=== PATIENT | male | born 1940 | race American Indian/Alaskan Native ===

== ENCOUNTER 2017-07-06 18:55 | Inpatient (IN) | payer MEDICARE ==
[2017-07-06] MEDS ORDERED: APRESOLINE IV ONE (20:24)
--- NOTE | 2017-07-06 20:24 | Emergency Department Report ---
ED General Adult HPI - General Chief complaint: Altered Mental Status Stated complaint: AMS Time Seen by Provider: 07/06/17 20:14 Source: patient, EMS (ems notes not available at time of chart dictation), RN notes reviewed Mode of arrival: Stretcher Limitations: Other (patient has no recollection of the event) - History of Present Illness Initial comments: This is a 77-year-old male. He is previously unknown to this provider. May have a history of hypertension/elevated blood pressure. Patient cannot recall the name of a primary care doctor. As per curious description, patient was found wandering around by police department, and was initially alert and oriented only 1. Patient has no recollection of wandering around, and has no complaints at this time. Patient indicates his 's name is Chintan, his son's name is Tavo , and he lives at [address] [place] [address]; [place] [id number]. He specifically denies headache, neck pain, chest pain, abdominal pain, shortness of breath, headache, urinary symptoms. -: unknown Improves with: none Worsens with: none Associated Symptoms: confusion. denies: chest pain, cough, diaphoresis, fever/ chills, headaches, loss of appetite, malaise, nausea/vomiting, rash, seizure, shortness of breath, syncope, weakness - Related Data Allergies Allergy/AdvReac Type Severity Reaction Status Date / Time No Known Allergies Allergy Unverified 07/06/17 20:15 ED Review of Systems ROS: Stated complaint: AMS Other details as noted in HPI Comment: All other systems reviewed and negative ED Past Medical Hx - Past Medical History Hx Hypertension: Yes - Social History Smoking Status: Current Every Day Smoker Substance Use Type: None ED Physical Exam - General Limitations: No Limitations General appearance: alert, in no apparent distress - Head Head exam: Present: atraumatic, normocephalic - Eye Eye exam: Present: normal appearance (visual acuity intact to finger counting, color perception, reading at a close distance), PERRL, EOMI, other (bilateral arcus senilis). Absent: nystagmus - ENT ENT exam: Present: normal exam, normal orophraynx, mucous membranes moist, normal external ear exam - Neck Neck exam: Present: normal inspection, full ROM - Respiratory Respiratory exam: Present: normal lung sounds bilaterally. Absent: respiratory distress - Cardiovascular Cardiovascular Exam: Present: regular rate, normal rhythm, normal heart sounds. Absent: systolic murmur, diastolic murmur, rubs, gallop - GI/Abdominal GI/Abdominal exam: Present: soft, normal bowel sounds. Absent: distended, tenderness, guarding, rebound, rigid, pulsatile mass - Rectal Rectal exam: Present: deferred - Extremities Exam Extremities exam: Present: normal inspection, full ROM, normal capillary refill. Absent: pedal edema, joint swelling, calf tenderness - Back Exam Back exam: Present: normal inspection, full ROM. Absent: tenderness, CVA tenderness (R), paraspinal tenderness, vertebral tenderness - Neurological Exam Neurological exam: Present: alert, oriented X3, CN II-XII intact, normal gait, other (Extraocular movements intact. Tongue midline. No facial droop. Facial sensation intact to light touch in the V1, V2, V3 distribution bilaterally. 5 and 5 strength in 4 extremities.. Sensation is intact to light touch in 4 extremities.). Absent: motor sensory deficit - Psychiatric Psychiatric exam: Present: normal affect, normal mood - Skin Skin exam: Present: warm, dry, intact, normal color. Absent: rash ED Course Vital Signs 07/06/17 07/06/17 07/06/17 19:55 20:16 20:31 Temperature 98.4 F 98.1 F Pulse Rate 76 73 77 Respiratory 18 15 12 Rate Blood Pressure 201/72 190/70 Blood Pressure 194/78 [Left] O2 Sat by Pulse 99 97 99 Oximetry 07/06/17 07/06/17 07/06/17 20:39 21:05 21:30 Temperature Pulse Rate 77 74 Respiratory 14 Rate Blood Pressure 190/77 190/70 180/73 Blood Pressure [Left] O2 Sat by Pulse 98 99 Oximetry - Reevaluation(s) Reevaluation #1: 07/06/17 21:58 Dr. Beltran, the hospital physician, graciously accepted the patient to the medical service. ED Medical Decision Making - Lab Data Result diagrams: 07/06/17 20:33 07/06/17 21:22 Vital Signs 07/06/17 07/06/17 07/06/17 19:55 20:16 20:31 Temperature 98.4 F 98.1 F Pulse Rate 76 73 77 Respiratory 18 15 12 Rate Blood Pressure 201/72 190/70 Blood Pressure 194/78 [Left] O2 Sat by Pulse 99 97 99 Oximetry 07/06/17 07/06/17 07/06/17 20:39 21:05 21:30 Temperature Pulse Rate 77 74 Respiratory 14 Rate Blood Pressure 190/77 190/70 180/73 Blood Pressure [Left] O2 Sat by Pulse 98 99 Oximetry Lab Results 07/06/17 07/06/17 07/06/17 Range/Units 20:33 20:33 20:33 WBC 11.2 H (4.5-11.0) K/mm3 RBC 5.54 H (3.65-5.03) M/mm3 Hgb 15.8 H (11.8-15.2) gm/dl Hct 50.1 H (35.5-45.6) % MCV 90 (84-94) fl MCH 28 (28-32) pg MCHC 31 L (32-34) % RDW 14.1 (13.2-15.2) % Plt Count 159 (140-440) K/mm3 Lymph % (Auto) 8.1 L (13.4-35.0) % [place] % (Auto) 5.3 (0.0-7.3) % Eos % (Auto) 0.1 (0.0-4.3) % Baso % (Auto) 0.3 (0.0-1.8) % Lymph # 0.9 L (1.2-5.4) K/mm3 [place] # 0.6 (0.0-0.8) K/mm3 Eos # 0.0 (0.0-0.4) K/mm3 Baso # 0.0 (0.0-0.1) K/mm3 Seg Neutrophils % 86.2 H (40.0-70.0) % Seg Neutrophils # 9.6 H (1.8-7.7) K/mm3 PT 12.9 (12.2-14.9) Sec. INR 0.93 (0.87-1.13) APTT 28.6 (24.2-36.6) Sec. Lactic Acid 1.30 (0.7-2.0) mmol/L Ammonia (25-60) umol/L TSH (0.270-4.200) mlU/mL Urine Bilirubin (Negative) Urine RBC (Auto) (0.0-6.0) /HPF Salicylates (2.8-20.0) mg/dL Urine Opiates Screen Urine Methadone Screen Acetaminophen (10.0-30.0) ug/mL Ur Barbiturates Screen Ur Phencyclidine Scrn Ur Amphetamines Screen U Benzodiazepines Scrn Urine Cocaine Screen U Marijuana (THC) Screen Drugs of Abuse Note Plasma/Serum Alcohol (0-0.07) % 07/06/17 07/06/17 07/06/17 Range/Units 20:33 20:33 20:33 WBC (4.5-11.0) K/mm3 RBC (3.65-5.03) M/mm3 Hgb (11.8-15.2) gm/dl Hct (35.5-45.6) % MCV (84-94) fl MCH (28-32) pg MCHC (32-34) % RDW (13.2-15.2) % Plt Count (140-440) K/mm3 Lymph % (Auto) (13.4-35.0) % [place] % (Auto) (0.0-7.3) % Eos % (Auto) (0.0-4.3) % Baso % (Auto) (0.0-1.8) % Lymph # (1.2-5.4) K/mm3 [place] # (0.0-0.8) K/mm3 Eos # (0.0-0.4) K/mm3 Baso # (0.0-0.1) K/mm3 Seg Neutrophils % (40.0-70.0) % Seg Neutrophils # (1.8-7.7) K/mm3 PT (12.2-14.9) Sec. INR (0.87-1.13) APTT (24.2-36.6) Sec. Lactic Acid (0.7-2.0) mmol/L Ammonia 48.0 (25-60) umol/L TSH 1.020 (0.270-4.200) mlU/mL Urine Bilirubin (Negative) Urine RBC (Auto) (0.0-6.0) /HPF Salicylates < 0.3 L (2.8-20.0) mg/dL Urine Opiates Screen Urine Methadone Screen Acetaminophen (10.0-30.0) ug/mL Ur Barbiturates Screen Ur Phencyclidine Scrn Ur Amphetamines Screen U Benzodiazepines Scrn Urine Cocaine Screen U Marijuana (THC) Screen Drugs of Abuse Note Plasma/Serum Alcohol (0-0.07) % 07/06/17 07/06/17 07/06/17 Range/Units 20:33 20:33 21:18 WBC (4.5-11.0) K/mm3 RBC (3.65-5.03) M/mm3 Hgb (11.8-15.2) gm/dl Hct (35.5-45.6) % MCV (84-94) fl MCH (28-32) pg MCHC (32-34) % RDW (13.2-15.2) % Plt Count (140-440) K/mm3 Lymph % (Auto) (13.4-35.0) % [place] % (Auto) (0.0-7.3) % Eos % (Auto) (0.0-4.3) % Baso % (Auto) (0.0-1.8) % Lymph # (1.2-5.4) K/mm3 [place] # (0.0-0.8) K/mm3 Eos # (0.0-0.4) K/mm3 Baso # (0.0-0.1) K/mm3 Seg Neutrophils % (40.0-70.0) % Seg Neutrophils # (1.8-7.7) K/mm3 PT (12.2-14.9) Sec. INR (0.87-1.13) APTT (24.2-36.6) Sec. Lactic Acid (0.7-2.0) mmol/L Ammonia (25-60) umol/L TSH (0.270-4.200) mlU/mL Urine Bilirubin Neg (Negative) Urine RBC (Auto) 1.0 (0.0-6.0) /HPF Salicylates (2.8-20.0) mg/dL Urine Opiates Screen Urine Methadone Screen Acetaminophen < 5.0 L (10.0-30.0) ug/mL Ur Barbiturates Screen Ur Phencyclidine Scrn Ur Amphetamines Screen U Benzodiazepines Scrn Urine Cocaine Screen U Marijuana (THC) Screen Drugs of Abuse Note Plasma/Serum Alcohol < 0.01 (0-0.07) % 07/06/17 Range/Units 21:18 WBC (4.5-11.0) K/mm3 RBC (3.65-5.03) M/mm3 Hgb (11.8-15.2) gm/dl Hct (35.5-45.6) % MCV (84-94) fl MCH (28-32) pg MCHC (32-34) % RDW (13.2-15.2) % Plt Count (140-440) K/mm3 Lymph % (Auto) (13.4-35.0) % [place] % (Auto) (0.0-7.3) % Eos % (Auto) (0.0-4.3) % Baso % (Auto) (0.0-1.8) % Lymph # (1.2-5.4) K/mm3 [place] # (0.0-0.8) K/mm3 Eos # (0.0-0.4) K/mm3 Baso # (0.0-0.1) K/mm3 Seg Neutrophils % (40.0-70.0) % Seg Neutrophils # (1.8-7.7) K/mm3 PT (12.2-14.9) Sec. INR (0.87-1.13) APTT (24.2-36.6) Sec. Lactic Acid (0.7-2.0) mmol/L Ammonia (25-60) umol/L TSH (0.270-4.200) mlU/mL Urine Bilirubin (Negative) Urine RBC (Auto) (0.0-6.0) /HPF Salicylates (2.8-20.0) mg/dL Urine Opiates Screen Presumptive negative Urine Methadone Screen Presumptive negative Acetaminophen (10.0-30.0) ug/mL Ur Barbiturates Screen Presumptive negative Ur Phencyclidine Scrn Presumptive negative Ur Amphetamines Screen Presumptive negative U Benzodiazepines Scrn Presumptive negative Urine Cocaine Screen Presumptive negative U Marijuana (THC) Screen Presumptive negative Drugs of Abuse Note Disclamer Plasma/Serum Alcohol (0-0.07) % - EKG Data -: EKG Interpreted by [facility] EKG shows normal: sinus rhythm - EKG Data When compared to previous EKG there are: previous EKG unavailable 07/06/17 21:52 Normal sinus, 74 bpm, high left ventricular voltage, nonspecific ST elevation diffusely, poor R wave progression, not having chest pain, not consistent with a STEMI, numerous T-wave inversions, abnormal EKG. 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 X-ray of the chest: Interpreted by me, no acute disease, hyperinflated lungs. - Medical Decision Making Differential diagnosis, including but not limited to: Transient ischemic attack , transient hypertensive encephalopathy, hypertensive urgency/emergency, pneumonia, urinary tract infection Assessment and plan: 77-year-old male with resolved altered mental status, clinically sober at this time, GCS of 15, with an NIH score of 0. He has no complaints at this time. He is not a TPA candidate given his current lack of symptoms. Noncontrast CT scan of the brain was negative for acute findings, patient endorses no symptoms. He was given hydralazine for his elevated blood pressure and aspirin. His laboratory studies were otherwise unremarkable at this time, not having chest pain, EKG is morphologically abnormal without prior for comparison. He will R admissions for a transient ischemic attack evaluation , patient at high risk by ABCD 2 score. Critical care attestation.: If time is entered above; I have spent that time in minutes in the direct care of this critically ill patient, excluding procedure time. ED Disposition Clinical Impression: TIA (transient ischemic attack), Elevated blood pressure reading Disposition: OP ADMIT IP TO THIS HOSP Is pt being admited?: Yes Does the pt Need Aspirin: Yes Condition: Good Referrals: MARIANN VALDIVIA MD [Primary Care Provider] - 3-5 Days
[2017-07-06 21:05] LABS: Basophils % (Auto) 0.3 % (0.0-1.8); Eosinophils % (Auto) 0.1 % (0.0-4.3); Hematocrit 50.1 % (35.5-45.6); Hemoglobin 15.8 gm/dl (11.8-15.2); Lymphocytes # (Auto) 0.9 K/mm3 (1.2-5.4); Lymphocytes % (Auto) 8.1 % (13.4-35.0); Mean Corpuscular HGB Conc 31 % (32-34); Mean Corpuscular Hemoglobin 28 pg (28-32); Mean Corpuscular Volume 90 fl (84-94); Monocytes # (Auto) 0.6 K/mm3 (0.0-0.8); Monocytes % (Auto) 5.3 % (0.0-7.3); Platelet Count 159 K/mm3 (140-440); Red Blood Count 5.54 M/mm3 (3.65-5.03); Red Cell Distribution Width 14.1 % (13.2-15.2)
[2017-07-06 21:17] LABS: INR 0.93 (0.87-1.13)
[2017-07-06 21:18] LABS: Partial Thromboplastin Time 28.6 Sec. (24.2-36.6)
[2017-07-06 21:29] LABS: Bilirubin,Urine NEG (Negative); Blood,Urine NEG (Negative); Color,Urine Yellow (Yellow); Mucus,Urine FEW /HPF; Protein,Urine <15 mg/dL mg/dL (Negative); Urobilinogen,Urine < 2.0 mg/dL (<2.0); WBC,Urine < 1.0 /HPF (0.0-6.0)
--- NOTE | 2017-07-06 21:34 | Cat Scan Report ---
FINAL REPORT PROCEDURE: CT HEAD/BRAIN WO CON TECHNIQUE: Computerized tomography of the head was performed without contrast material. HISTORY: Altered Mental Status COMPARISON: No prior studies are available for comparison. FINDINGS: There is no CT evidence of intracranial mass, hemorrhage, acute territorial infarction, or hydrocephalus. The intracranial arteries are symmetric in density. There is a small subcentimeter lacunar infarct in the right basal ganglia. Calvarium is intact. There is mild left maxillary sinus mucosal thickening. IMPRESSION: No CT evidence of acute abnormality
[2017-07-06 21:41] LABS: Amphetamine Screen,Urine PRESUMPTIVE NEGATIVE; Benzodiazepines Screen,Urine PRESUMPTIVE NEGATIVE; Cannabinoid Screen,Urine PRESUMPTIVE NEGATIVE; Cocaine Screen,Urine PRESUMPTIVE NEGATIVE; Methadone Screen,Urine PRESUMPTIVE NEGATIVE; Opiate Screen,Urine PRESUMPTIVE NEGATIVE
[2017-07-06] MEDS ORDERED: BABY ASPIRIN PO ONE (21:55)
[2017-07-06 21:57] LABS: Alanine Aminotransferase 30 units/L (7-56); Albumin 4.1 g/dL (3.9-5); BUN/Creatinine Ratio 15; Blood Urea Nitrogen 16 mg/dL (9-20); Calcium 9.9 mg/dL (8.4-10.2); Hemolysis Index 2
--- NOTE | 2017-07-06 23:15 | History and Physical Report ---
History of Present Illness Date of examination: 07/06/17 History of present illness: This is a 77-year-old male with a history of hypertension, noncompliant with medication was brought to the emergency room by the police. He was satting to straight, oriented 1. The patient stated he was coming from his son's house, use on his way home when she was stopped by the police and brought to the emergency room. He denies any complaints Review Of Systems: Constitutional: no weight loss Ears, eyes, nose, mouth and throat: no nasal congestion, no nasal discharge, no sinus pressure, blurry vision, diplopia Neck: No neck pain or rigidity. Cardiovascular: no chest pain, orthopnea, palpitations Respiratory: No shortness of breath, cough Gastrointestinal: no abdominal pain, hematochezia Genitourinary : no hematuria Musculoskeletal: no muscle ache Integumentary: no rash, no pruritis Neurological: no parathesias, focal weakness Endocrine: no cold or heat intolerance, no polyuria or polydipsia Hematologic/Lymphatic: no easy bruising, no easy bleeding, no gland swelling Allergic/Immunologic: no urticaria, no angioedema. PAST MEDICAL HISTORY; hypertension PAST SURGICAL HISTORY: None SOCIAL HISTORY: Smokes half pack a day, no alcohol or drugs FAMILY HISTORY: Hypertension Medications and Allergies Allergies Allergy/AdvReac Type Severity Reaction Status Date / Time No Known Allergies Allergy Verified 07/06/17 23:20 Home Medications Medication Instructions Recorded Confirmed Last Taken Type No Known Home Medications [No 07/06/17 07/06/17 Unknown History Reported Home Medications] Exam - Physical Exam Narrative exam: The patient appeared well nourished and normally developed. Vital signs as documented. Head exam is unremarkable. No scleral icterus or corneal arcus noted. Neck is without jugular venous distension, thyromegaly, or carotid bruits. Carotid upstrokes are brisk bilaterally. Lungs are clear to auscultation and percussion. Cardiac exam reveals the PMI to be normally sized and situated. Rhythm is regular. First and second heart sounds normal. No murmurs, rubs or gallops. Abdominal exam reveals normal bowel sounds, no masses, no organomegaly and no aortic enlargement. Extremities are nonedematous and both femoral and pedal pulses are normal. - Constitutional Vitals: Temp Pulse Resp BP Pulse Ox 98.1 F 73 15 182/68 99 07/06/17 20:16 07/06/17 22:00 07/06/17 22:00 07/06/17 22:00 07/06/17 22:00 Results - Labs CBC & Chem 7: 07/06/17 20:33 07/06/17 21:22 Labs: Abnormal lab results 07/06/17 07/06/17 07/06/17 Range/Units 20:33 20:33 20:33 WBC 11.2 H (4.5-11.0) K/mm3 RBC 5.54 H (3.65-5.03) M/mm3 Hgb 15.8 H (11.8-15.2) gm/dl Hct 50.1 H (35.5-45.6) % MCHC 31 L (32-34) % Lymph % (Auto) 8.1 L (13.4-35.0) % Lymph # 0.9 L (1.2-5.4) K/mm3 Seg Neutrophils % 86.2 H (40.0-70.0) % Seg Neutrophils # 9.6 H (1.8-7.7) K/mm3 Total Creatine Kinase (55-170) units/L Salicylates < 0.3 L (2.8-20.0) mg/dL Acetaminophen < 5.0 L (10.0-30.0) ug/mL 07/06/17 Range/Units 21:22 WBC (4.5-11.0) K/mm3 RBC (3.65-5.03) M/mm3 Hgb (11.8-15.2) gm/dl Hct (35.5-45.6) % MCHC (32-34) % Lymph % (Auto) (13.4-35.0) % Lymph # (1.2-5.4) K/mm3 Seg Neutrophils % (40.0-70.0) % Seg Neutrophils # (1.8-7.7) K/mm3 Total Creatine Kinase 207 H (55-170) units/L Salicylates (2.8-20.0) mg/dL Acetaminophen (10.0-30.0) ug/mL - Imaging and Cardiology EKG: image reviewed Chest x-ray: image reviewed CT Scan - head: report reviewed Assessment and Plan Assessment TIA versus dementia Hypertension malignant Plan Admit to medicine Do neuro checks, obtain MRI of the head Start aspirin, consult neurology Melania C&S negative for blood pressure control DVT prophylaxis
[2017-07-06] MEDS ORDERED: ZOFRAN IV PRN (23:16)
[2017-07-06] MEDS ORDERED: TYLENOL PO PRN (23:16)
[2017-07-06] MEDS ORDERED: SODIUM CHLORIDE FLUSH SYRINGE 10 ML IV PRN (23:16)
--- NOTE | 2017-07-07 00:06 | XRay Report ---
FINAL REPORT PROCEDURE: XR CHEST ROUTINE 2V TECHNIQUE: PA and lateral chest radiographs were obtained. CPT 57161 HISTORY: htn ams COMPARISON: No prior studies are available for comparison. FINDINGS: Heart: Normal. Mediastinum/Vessels: Normal. Lungs/Pleural space: Lungs are well-expanded. There are no infiltrates, effusions or pneumothoraces.. Bony thorax: No acute osseous abnormality. Other: IMPRESSION: Normal heart and lungs..
[2017-07-07 04:58] LABS: Basophils % (Auto) 0.4 % (0.0-1.8); Eosinophils # (Auto) 0.1 K/mm3 (0.0-0.4); Hematocrit 49.6 % (35.5-45.6); Hemoglobin 16.3 gm/dl (11.8-15.2); Lymphocytes # (Auto) 1.7 K/mm3 (1.2-5.4); Lymphocytes % (Auto) 17.6 % (13.4-35.0); Mean Corpuscular HGB Conc 33 % (32-34); Mean Corpuscular Hemoglobin 29 pg (28-32); Mean Corpuscular Volume 88 fl (84-94); Monocytes # (Auto) 0.6 K/mm3 (0.0-0.8); Monocytes % (Auto) 6.3 % (0.0-7.3); Platelet Count 155 K/mm3 (140-440); Red Blood Count 5.63 M/mm3 (3.65-5.03); Red Cell Distribution Width 13.6 % (13.2-15.2)
[2017-07-07 05:19] LABS: BUN/Creatinine Ratio 14; Blood Urea Nitrogen 13 mg/dL (9-20); Calcium 9.2 mg/dL (8.4-10.2); Hemolysis Index 10
[2017-07-07] MEDS: APRESOLINE IV PRN ×2 (06:54→18:05)
[2017-07-07] MEDS ORDERED: LOVENOX SUB-Q SCH (10:00)
[2017-07-07] MEDS: LOVENOX SUB-Q SCH (10:59)
[2017-07-07] MEDS: BABY ASPIRIN PO SCH (10:59)
[2017-07-07] MEDS: SODIUM CHLORIDE FLUSH SYRINGE 10 ML IV SCH ×2 (11:00→21:33)
--- NOTE | 2017-07-07 11:40 | Progress Note ---
Assessment and Plan Assessment and plan: Acute encephalopathy. Etiology may be secondary to TIA/CVA. Follow-up MRI. Neurology consultation pending. CT scan of the head is negative. Accelerated hypertension. Improved. Continue home antihypertensive medications. History Interval history: No new issues overnight. Hospitalist Physical - Constitutional Vitals: Temp Pulse Resp BP Pulse Ox 97.7 F 66 18 164/62 98 07/07/17 07:45 07/07/17 10:00 07/07/17 07:45 07/07/17 07:45 07/07/17 07:45 General appearance: Present: no acute distress, well-nourished - EENT Eyes: Present: PERRL, EOM intact ENT: hearing intact, clear oral mucosa, dentition normal - Neck Neck: Present: supple, normal ROM - Respiratory Respiratory effort: normal Respiratory: bilateral: CTA - Cardiovascular Rhythm: regular Heart Sounds: Present: S1 & S2. Absent: gallop, rub - Extremities Extremities: no ischemia, No edema, Full ROM - Abdominal General gastrointestinal: soft, non-tender, non-distended, normal bowel sounds - Integumentary Integumentary: Present: clear, warm, dry - Neurologic Neurologic: CNII-XII intact, moves all extremities Results - Labs CBC & Chem 7: 07/07/17 04:07 07/07/17 04:07 Labs: Laboratory Last Values WBC 9.7 K/mm3 (4.5-11.0) 07/07/17 04:07 RBC 5.63 M/mm3 (3.65-5.03) H 07/07/17 04:07 Hgb 16.3 gm/dl (11.8-15.2) H 07/07/17 04:07 Hct 49.6 % (35.5-45.6) H 07/07/17 04:07 MCV 88 fl (84-94) 07/07/17 04:07 MCH 29 pg (28-32) 07/07/17 04:07 MCHC 33 % (32-34) 07/07/17 04:07 RDW 13.6 % (13.2-15.2) 07/07/17 04:07 Plt Count 155 K/mm3 (140-440) 07/07/17 04:07 Lymph % (Auto) 17.6 % (13.4-35.0) 07/07/17 04:07 [place] % (Auto) 6.3 % (0.0-7.3) 07/07/17 04:07 Eos % (Auto) 1.0 % (0.0-4.3) 07/07/17 04:07 Baso % (Auto) 0.4 % (0.0-1.8) 07/07/17 04:07 Lymph # 1.7 K/mm3 (1.2-5.4) 07/07/17 04:07 [place]kes # 0.6 K/mm3 (0.0-0.8) 07/07/17 04:07 Eos # 0.1 K/mm3 (0.0-0.4) 07/07/17 04:07 Baso # 0.0 K/mm3 (0.0-0.1) 07/07/17 04:07 Seg Neutrophils % 74.7 % (40.0-70.0) H 07/07/17 04:07 Seg Neutrophils # 7.2 K/mm3 (1.8-7.7) 07/07/17 04:07 PT 12.9 Sec. (12.2-14.9) 07/06/17 20:33 INR 0.93 (0.87-1.13) 07/06/17 20:33 APTT 28.6 Sec. (24.2-36.6) 07/06/17 20:33 Sodium 141 mmol/L (137-145) 07/07/17 04:07 Potassium 4.4 mmol/L (3.6-5.0) 07/07/17 04:07 Chloride 101.5 mmol/L (98-107) 07/07/17 04:07 Carbon Dioxide 22 mmol/L (22-30) 07/07/17 04:07 Anion Gap 22 mmol/L 07/07/17 04:07 BUN 13 mg/dL (9-20) 07/07/17 04:07 Creatinine 0.9 mg/dL (0.8-1.5) 07/07/17 04:07 Estimated GFR > 60 ml/min 07/07/17 04:07 BUN/Creatinine Ratio 14 % 07/07/17 04:07 Glucose 83 mg/dL (75-100) 07/07/17 04:07 Lactic Acid 1.30 mmol/L (0.7-2.0) 07/06/17 20:33 Calcium 9.2 mg/dL (8.4-10.2) 07/07/17 04:07 Total Bilirubin 0.40 mg/dL (0.1-1.2) 07/06/17 21:22 AST 23 units/L (5-40) 07/06/17 21:22 ALT 30 units/L (7-56) 07/06/17 21:22 Alkaline Phosphatase 72 units/L (35-129) 07/06/17 21:22 Ammonia 48.0 umol/L (25-60) 07/06/17 20:33 Total Creatine Kinase 207 units/L (55-170) H 07/06/17 21:22 Troponin T 0.012 ng/mL (0.00-0.029) 07/06/17 21:22 Total Protein 7.0 g/dL (6.3-8.2) 07/06/17 21:22 Albumin 4.1 g/dL (3.9-5) 07/06/17 21:22 Albumin/Globulin Ratio 1.4 % 07/06/17 21:22 TSH 1.020 mlU/mL (0.270-4.200) 07/06/17 20:33 Urine Color Yellow (Yellow) 07/06/17 21:18 Urine Turbidity Clear (Clear) 07/06/17 21:18 Urine pH 5.0 (5.0-7.0) 07/06/17 21:18 Ur Specific [place] 1.018 (1.003-1.030) 07/06/17 21:18 Urine Protein <15 mg/dl mg/dL (Negative) 07/06/17 21:18 Urine Glucose (UA) Neg mg/dL (Negative) 07/06/17 21:18 Urine Ketones Neg mg/dL (Negative) 07/06/17 21:18 Urine Blood Neg (Negative) 07/06/17 21:18 Urine Nitrite Neg (Negative) 07/06/17 21:18 Urine Bilirubin Neg (Negative) 07/06/17 21:18 Urine Urobilinogen < 2.0 mg/dL (<2.0) 07/06/17 21:18 Ur Leukocyte Esterase Neg (Negative) 07/06/17 21:18 Urine WBC (Auto) < 1.0 /HPF (0.0-6.0) 07/06/17 21:18 Urine RBC (Auto) 1.0 /HPF (0.0-6.0) 07/06/17 21:18 Urine Mucus Few /HPF 07/06/17 21:18 Salicylates < 0.3 mg/dL (2.8-20.0) L 07/06/17 20:33 Urine Opiates Screen Presumptive negative 07/06/17 21:18 Urine Methadone Screen Presumptive negative 07/06/17 21:18 Acetaminophen < 5.0 ug/mL (10.0-30.0) L 07/06/17 20:33 Ur Barbiturates Screen Presumptive negative 07/06/17 21:18 Ur Phencyclidine Scrn Presumptive negative 07/06/17 21:18 Ur Amphetamines Screen Presumptive negative 07/06/17 21:18 U Benzodiazepines Scrn Presumptive negative 07/06/17 21:18 Urine Cocaine Screen Presumptive negative 07/06/17 21:18 U Marijuana (THC) Screen Presumptive negative 07/06/17 21:18 Drugs of Abuse Note Disclamer 07/06/17 21:18 Plasma/Serum Alcohol < 0.01 % (0-0.07) 07/06/17 20:33
--- NOTE | 2017-07-07 18:06 | Consultation ---
History of Present Illness Consult date: 07/07/17 Requesting physician: ALEX SANTOS Reason for Consult: altered mental status Chief complaint: episode of confusion History of present illness: This 77-year-old right-handed -Martiniquais male per ER physician: "was found wandering around by police department, and was initially alert and oriented only 1. Patient has no recollection of wandering around, and has no complaints at this time. Patient indicates his 's name is Chintan, his son' s name is Tavo, and he lives at [address] [place] [address]; [facility], [facility] He states he felt dizzy and was staggering. He seems to recall the police coming and then being transported here by ambulance. He denies any numbness or tingling or dizziness or headache now. He states he has not been on any medication. Past History Past Medical History: hypertension (but no medications.). 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 Never in the .). denies: alcohol abuse (none), prescription drug abuse, IV drug use (other illicit drugs) Medications and Allergies Allergies Allergy/AdvReac Type Severity Reaction Status Date / Time No Known Allergies Allergy Verified 07/06/17 23:20 Home Medications Medication Instructions Recorded Confirmed Last Taken Type No Known Home Medications [No 07/06/17 07/06/17 Unknown History Reported Home Medications] Active Meds: Active Medications Acetaminophen (Tylenol) 650 mg PO Q4H PRN PRN Reason: Pain MILD(1-3)/Fever >100.5/CASTANEDA Aspirin (Baby Aspirin) 81 mg PO QDAY [facility] Last Admin: 07/07/17 10:59 Dose: 81 mg Enoxaparin Sodium (Lovenox) 40 mg SUB-Q QDAY@1000 [facility] Last Admin: 07/07/17 10:59 Dose: 40 mg Hydralazine HCl (Apresoline) 5 mg IV Q6HR PRN PRN Reason: Hypertension Last Admin: 07/07/17 06:54 Dose: 5 mg Ondansetron HCl (Zofran) 4 mg IV Q8H PRN PRN Reason: Nausea And Vomiting Sodium Chloride (Sodium Chloride Flush Syringe 10 Ml) 10 ml IV BID [facility] Last Admin: 07/07/17 11:00 Dose: 10 ml Sodium Chloride (Sodium Chloride Flush Syringe 10 Ml) 10 ml IV PRN PRN PRN Reason: LINE FLUSH Review of Systems All systems: negative (no headaches or dizziness usually, those storing, for 20- 30 minutes no more than once a day but not every day. He states he does not drive. No memory problems.) Physical Examination - Vital Signs Vital Signs: Vital Signs Temp Pulse Resp BP Pulse Ox 98.4 F 76 18 201/72 99 07/06/17 19:55 07/06/17 19:55 07/06/17 19:55 07/06/17 19:55 07/06/17 19:55 - Physical Exam Narrative exam: General Appearance: well developed well nourished (per BMI) late 70s - Martiniquais male in NAD. HEENT: atraumatic, normocephalic; no bruits, 2+ Susanna without soreness or induration or enlargement, sclerae nonicteric. Oropharynx pink and moist. Neck: supple, no bruits. Heart: no murmur or extra sounds. Extremities: no clubbing, cyanosis or edema. 2+ dorsalis pedis pulse on the left but no pulses on the right foot or ankle. Very long toenails. Neurologic Exam: Mental Status: Awake, alert, oriented X 3, speech is clear, names pen and tip of pen, and abstracts well. Names President and Lead Android Developer after first names as prompts, serial 7's with 2 errors and gives 5+7 = 13, no right-left confusion, gets 0 of 3 objects at 3 minutes, spells WORLD backwards with one transposition. Cranial Nerves: conner full, no papilledema, SVPs present, right pupil was sluggish and a little larger than the left which reacts better to light but both react to accommodation, EOMs full without nystagmus or diplopia, facial sensation intact to pinprick and light touch, no facial weakness, Burt is midline, palate rises symmetrically to phonation and gags are positive, shoulder shrug is 5 X 2, tongue protrudes midline. Cerebellar: finger to nose dysmetric at the endpoint on the right but intact on the left, heel to bal is intact bilaterally. Sensory: intact to light touch, pinprick, and vibrations. Double simultaneous stimulation is intact. Motor Exam Upper Extremities: no drift or pronation, Mariela intact. Cork Mixer are 5 X 2, tone is normal. No atrophy or fasciculations are noted visually. Motor Exam Lower Extremities: No leg lag, quadriceps and anterior tibials and gastrocnemius are 5 bilaterally. Mariela intact. Tone is normal. No atrophy or fasciculations are noted visually. Reflexes: Palmomental, snout and jaw jerk are negative. Triceps and biceps are 2+ right and 2 left and brachioradialis are 2 bilaterally. Luis's is negative bilaterally. Knee jerks are and ankle jerks are 1+ left without clonus. Toes are upgoing right and downgoing left to Babinski testing. Results - Laboratory Findings CBC and BMP: 07/07/17 04:07 07/07/17 04:07 Abnormal Lab Findings: Abnormal Labs 07/06/17 07/06/17 07/06/17 20:33 20:33 20:33 WBC 11.2 H RBC 5.54 H Hgb 15.8 H Hct 50.1 H MCHC 31 L Lymph % (Auto) 8.1 L Lymph # 0.9 L Seg Neutrophils % 86.2 H Seg Neutrophils # 9.6 H Total Creatine Kinase Salicylates < 0.3 L Acetaminophen < 5.0 L 07/06/17 07/07/17 21:22 04:07 WBC RBC 5.63 H Hgb 16.3 H Hct 49.6 H MCHC Lymph % (Auto) Lymph # Seg Neutrophils % 74.7 H Seg Neutrophils # Total Creatine Kinase 207 H Salicylates Acetaminophen Assessment and Plan Impression: 1. Amnestic episode 2. Hypertension 3. Tobacco abuse Plan: 1. EEG ordered. I later reviewed the EEG showing normal 12 Hz alpha activity posteriorly, some drowsiness with associated slowing and perhaps some K complexes (normal sleep) and occasional FIRDA (activity) suggesting a diffuse or metabolic process. Epileptiform activity though this is always a small snapshot in time. He does not drive and should not be allowed to drive until no episodes for 6 months straight. He should not be allowed to take a bath alone or be up on roofs or ladders or be around dangerous objects such as a hot stove etc. 2. MRI and MRA of brain are pending. 3. Signing off. Will order memory labs. Call if any unusual results for MRI and MRA or labs. 45 minutes spent today including review of CT scan showing some atrophy and old white matter disease. Thank you for an interesting consult on this pleasant elderly man.
[2017-07-08 08:31] VITALS: BP 218/75
--- NOTE | 2017-07-08 09:14 | Discharge Summary ---
Providers - Providers Date of Admission: 07/06/17 23:16 Date of discharge: 07/08/17 Attending physician: ASHLEY CANALES 07/06/17 23:16 Consult to Physician [CONS] Routine Comment: Consulting Provider: AIDE PAIGE Physician Instructions: Reason For Exam: tia Primary care physician: MARIANN VALDIVIA Hospitalization Reason for admission: AMS Condition: Good Hospital course: This 77-year-old right-handed -Togolese male per ER physician: "was found wandering around by police department, and was initially alert and oriented only 1. Patient has no recollection of wandering around. Patient indicated that he felt dizzy and was staggering. He seems to recall the police coming and then being transported here by ambulance. He denied any numbness or tingling or dizziness or headache. He states he has not been on any medication. The patient was admitted with diagnosis of acute encephalopathy and seen by neurology in consultation. CT scan reveals some atrophy and old white matter disease. EEG was completed and revealed normal 12 Hz alpha activity posteriorly, some drowsiness with associated slowing and perhaps some K complexes (normal sleep) and occasional FIRDA (activity) suggesting a diffuse or metabolic process. Epileptiform activity though this is always a small snapshot in time. Neurology indicated that He does not drive and should not be allowed to drive until no episodes for 6 months straight. He should not be allowed to take a bath alone or be up on roofs or ladders or be around dangerous objects such as a hot stove etc. MRI/MRA was recommended by neurology and ordered but patient refused test. Dedicated discharge time 32 minutes. Disposition: DC-01 TO HOME OR SELFCARE Time spent for discharge: 32 - Discharge Diagnoses (1) Transient global amnesia Status: Acute (2) HTN (hypertension) Status: Acute Core Measure Documentation - Palliative Care Palliative Care/ Comfort Measures: Not Applicable - Core Measures Any of the following diagnoses?: none Exam - Constitutional Vitals: Temp Pulse Resp BP Pulse Ox 97.9 F 67 20 218/75 98 07/08/17 08:31 07/08/17 08:31 07/08/17 08:31 07/08/17 08:31 07/08/17 08:31 General appearance: Present: no acute distress, well-nourished - EENT Eyes: Present: PERRL ENT: hearing intact, clear oral mucosa - Neck Neck: Present: supple, normal ROM - Respiratory Respiratory effort: normal Respiratory: bilateral: CTA - Cardiovascular Heart Sounds: Present: S1 & S2. Absent: rub, click - Extremities Extremities: pulses symmetrical, No edema Peripheral Pulses: within normal limits - Abdominal General gastrointestinal: Present: soft, non-tender, non-distended, normal bowel sounds Male genitourinary: Present: normal - Integumentary Integumentary: Present: clear, warm, dry - Musculoskeletal Musculoskeletal: gait normal, strength equal bilaterally - Psychiatric Psychiatric: appropriate mood/affect, intact judgment & insight - Neurologic Neurologic: CNII-XII intact, moves all extremities Plan Activity: no restrictions Weight Bearing Status: Weight Bear as Tolerated Diet: low fat, low cholesterol, low salt Special Instructions: other (Neurology indicated that He does not drive and should not be allowed to drive until no episodes for 6 months straight. He should not be allowed to take a bath alone or be up on roofs or ladders or be around dangerous objects such as a hot stove etc. ) Additional Instructions: Neurology indicated that He does not drive and should not be allowed to drive until no episodes for 6 months straight. He should not be allowed to take a bath alone or be up on roofs or ladders or be around dangerous objects such as a hot stove etc. Follow up with: MARIANN VALDIVIA MD [Primary Care Provider] - 3-5 Days AIDE PAIGE MD [Staff Physician] - 7 Days Forms: Discharge Signature Page Prescriptions: Aspirin [Aspirin BABY CHEW TAB] 81 mg PO QDAY #30 tab.chew
[2017-07-08] MEDS: BABY ASPIRIN PO SCH (10:13)
[2017-07-08] MEDS: LOVENOX SUB-Q SCH (10:14)
== END 2017-07-08 11:04 | disposition home or self-care (01) | DRG 70 ==
LOC: ED 18:55 → 4A 23:16
PROVIDERS: ADMIT Internal Medicine; ATTEND Hospitalist
DX: G45.4 Transient global amnesia (principal); G93.40 Encephalopathy, unspecified; I10 Essential (primary) hypertension; F17.200 Nicotine dependence, unspecified, uncomplicated; Z82.49 Family history of ischemic heart disease and other diseases of the circulatory system
CPT/HCPCS: 36415; 70450; 71046; 80048; 80053; 80307; 80320; 81001; 82140; 82550; 82607; 82747; 84425; 84439; 84443; 84484; 85025; 85610; 85730; 93005; 93010; 95816; 96374; 99406; G0480; J0360; J1650